=== PATIENT | female | born 1965 | race Caucasian/White ===

== ENCOUNTER 2016-07-09 11:05 | Emergency (ER) | payer BC, OTHER ==
[2016-07-09] MEDS ORDERED: KETOROLAC TROMETHAMINE 60 MG/2 ML VIAL IM ONE (11:27)
--- NOTE | 2016-07-09 11:34 | PDOC ---
History of Present Illness - General Chief Complaint: Pain Stated Complaint: RIGHT SHOULDER PAIN Time Seen by Provider: 07/09/16 11:27 - History of Present Illness Initial Comments: 07/09/16 11:28 50 yo F with h/o HTN HLD, shoulder pain here with c/o worsening right shoulder pain. was golfing and may have strained it. no new numbness or tinlging. feels weak because of pain. though she felt a pop yesterday. was taking percocet, no relief. also to aleve today. no prior shoulder surgeries. no f/c no sob. Past History - Past Medical History Allergies/Adverse Reactions: Allergies Allergy/AdvReac Type Severity Reaction Status Date / Time No Known Allergies Allergy Verified 07/09/16 11:22 Home Medications: Ambulatory Orders Diazepam [Valium] 5 mg PO Q8H PRN #10 tablet MDD 3 07/09/16 Hydrochlorothiazide [Hctz -] 12.5 mg PO DAILY 07/09/16 Hydrocodone/Acetaminophen [Chelsea 5-325 Tablet] 1 each PO Q6H PRN 07/09/16 Ibuprofen 600 mg PO TID PRN #30 tablet MDD 3 07/09/16 Ramipril 10 mg PO DAILY 07/09/16 Rosuvastatin Calcium [Crestor] 20 mg PO DAILY 07/09/16 HTN: Yes Hypercholesterolemia: Yes - Psycho/Social/Smoking Cessation Hx Suicidal Ideation: No Smoking Status: Yes Smoking History: Current every day smoker Number of Cigarettes Smoked Daily: 3 Review of Systems - Review of Systems Constitutional: No: Chills, Diaphoresis HEENTM: No: Eye Pain, Blurred Vision Respiratory: No: Cough, Orthopnea Cardiac (ROS): No: Chest Pain, Edema ABD/GI: No: Abdominal Distended : No: Burning, Dysuria Musculoskeletal: Yes: Joint Pain, Muscle Pain. No: Joint Swelling, Muscle Weakness, Neck Pain, Joint Stiffness Integumentary: No: Bruising, Change in Color All Other Systems: Reviewed and Negative *Physical Exam - Physical Exam General Appearance: Yes: Nourished, Appropriately Dressed. No: Apparent Distress HEENT: positive: Normal ENT Inspection, Normal Voice Neck: positive: Trachea midline Respiratory/Chest: positive: Lungs Clear, Normal Breath Sounds. negative: Respiratory Distress Cardiovascular: positive: Regular Rhythm, Regular Rate, S1, S2. negative: Edema Musculoskeletal: positive: Other (right shoulder posterior scap ttp, FROM. no laxity. no tender over collarbone. elbow/ right wrist FROM NT. ). negative: CVA Tenderness (R) Neurologic: positive: Fully Oriented, Alert, Normal Mood/Affect, Other (n/v intact distal right arm. ) ED Treatment Course - RADIOLOGY Radiology Studies Ordered: Category Date Time Status SHOULDER-RIGHT [RAD] Stat Radiology 07/09/16 11:27 Ordered Medical Decision Making - Medical Decision Making 07/09/16 11:33 50 yo F with h/o HTN HLD here with c/o right shoulder . scapular pain. worse with movement, unrelieved by narcotics. differential: trapezial spasm, muscle strain, shoulder injury. plan xray shoulder, recommend outpt ortho followup. given rx for motrin 600 and valium 5mg. 07/09/16 12:03 xray shoulder negative. given RX for valium #10, 5 mg. and motrin 600 #30. [facility] . told to follow up with ortho and pcp. *DC/Admit/Observation/Transfer Diagnosis at time of Disposition: Shoulder injury, Muscle spasm - Discharge Dispostion Disposition: HOME Condition at time of disposition: Good Admit: No - Prescriptions Prescriptions: Ibuprofen 600 mg PO TID PRN #30 tablet MDD 3 PRN Reason: Pain Diazepam [Valium] 5 mg PO Q8H PRN #10 tablet MDD 3 PRN Reason: Pain - Referrals Referrals: Magdaleno Kaiser MD [Primary Care Provider] - Jorge Luis Choe MD [Staff Physician] - - Patient Instructions Printed Discharge Instructions: Tips to Help You Stop Smoking, DI for Shoulder Pain Additional Instructions: take valium 5 mg every 8 hours as needed for muscle spasm. if you are taking Narco, be sure to take at least half hour apart as both medications can make you drowsy. do not mix valium with alcohol, and do not drive after taking medication. you should also take ibuprofen 600 mg every 8 hours as needed for pain, take with food. follow up with orthopedics, DR Choe, or Gareth, see referral number. call to schedule a follow up appointment. continue with physical therapy.
[2016-07-09 11:39] VITALS: BP 124/73; PULSE 65; TEMP 97.8; BMI 22.8
[2016-07-09] MEDS ORDERED: KETOROLAC TROMETHAMINE 60 MG/2 ML VIAL ONE (11:41)
== END 2016-07-09 12:05 | disposition home or self-care (01) ==
LOC: FER 11:05
PROC: 3E0233Z Introduction of Anti-inflammatory into Muscle, Percutaneous Approach (ICD-10-PCS; principal; 2016-07-09)
DX: S49.91XA Unspecified injury of right shoulder and upper arm, initial encounter (principal); M62.838 Other muscle spasm; F17.210 Nicotine dependence, cigarettes, uncomplicated; I10 Essential (primary) hypertension; E78.5 Hyperlipidemia, unspecified; X58.XXXA Exposure to other specified factors, initial encounter; Y93.9 Activity, unspecified; Y92.9 Unspecified place or not applicable
CPT/HCPCS: 73030-TC-RT; 99282-25

== ENCOUNTER 2016-11-02 06:19 | Day surgery (SDC) | payer OTHER, BC ==
[2016-10-25 17:45] VITALS: BMI 23.0
[2016-11-02] MEDS ORDERED: DEXAMETHASONE SOD PHOSPHATE/PF 10 MG/ML SDV ONE (07:31)
[2016-11-02] MEDS ORDERED: MIDAZOLAM HCL 2 MG/2 ML SINGLE DOSE VIAL ONE (07:31)
[2016-11-02] MEDS ORDERED: SUCCINYLCHOLINE CHLORIDE 200 MG/10 ML VIAL ONE (07:51)
[2016-11-02] MEDS ORDERED: PROPOFOL 20 ML ONE ×2 (07:51)
[2016-11-02] MEDS ORDERED: ROCURONIUM BROMIDE 50 MG/5 ML VIAL ONE (08:14)
[2016-11-02] MEDS ORDERED: KETOROLAC TROMETHAMINE 30 MG/1 ML VIAL ONE (08:21)
[2016-11-02] MEDS ORDERED: DEXAMETHASONE SOD PHOSPHATE 4 MG/1 ML VIAL ONE (08:21)
[2016-11-02] MEDS ORDERED: ONDANSETRON 4 MG/2 ML VIAL ONE ×2 (08:21→09:58)
[2016-11-02] MEDS ORDERED: ceFAZolin SODIUM 1 GM VIAL ONE (08:21)
[2016-11-02] MEDS ORDERED: DESFLURANE GAS 240 ML BOTTLE IH ONE (08:38)
[2016-11-02] MEDS ORDERED: PHENYLEPHRINE HCL 10 MG/1 ML SINGLE DOSE VIAL ONE (08:49)
[2016-11-02] MEDS ORDERED: ePHEDrine SULFATE 50 MG/1 ML AMPULE ONE (08:49)
[2016-11-02] MEDS ORDERED: BUPIVACAINE HCL/PF 0.5% (5MG/ML) 10 ML VIAL IJ ONE (09:15)
[2016-11-02] MEDS ORDERED: BUPIVACAINE HCL/PF 0.5% (5MG/ML) 10 ML VIAL ONE (09:15)
[2016-11-02] MEDS ORDERED: NEOSTIGMINE METHYLSULFATE 0.5 MG/ML - 10 ML MDV ONE (09:19)
[2016-11-02] MEDS ORDERED: GLYCOPYRROLATE 0.2 MG/1 ML VIAL ONE (09:19)
[2016-11-02] MEDS ORDERED: ONDANSETRON 4 MG/2 ML VIAL IVPUSH PRN (09:34)
[2016-11-02] MEDS ORDERED: oxyCODONE HCL 5 MG TABLET PO PRN (09:34)
[2016-11-02] MEDS ORDERED: LACTATED RINGERS SOLUTION 1,000 ML IV SCH (09:45)
--- NOTE | 2016-11-02 10:24 | OP ---
DATE OF OPERATION: 11/02/2016 PREOPERATIVE DIAGNOSIS: Left inguinal hernia. POSTOPERATIVE DIAGNOSIS: Direct left inguinal hernia. PROCEDURE PERFORMED: Open repair of direct left inguinal hernia, intermediate wound closure (8 cm). SURGEON: Paul Yañez M.D. HITCHER: Wili Grijalva M.D. ANESTHESIA: Sara Chopra M.D. (general) INDICATIONS: The patient is a 51-year-old woman who presents for repair of a large left inguinal hernia. The indications, alternatives and possible complications were reviewed. Consent was obtained. DESCRIPTION OF PROCEDURE: With the patient in the supine position and after general anesthesia, the left groin was prepped and draped in sterile fashion using chlorhexidine. An 8-cm left groin incision was made between the left pubic tubercle and left anterior iliac spine. The incision was deepened into the subcutaneous space. The subcutaneous tissues were divided, and ultimately the external oblique aponeurosis identified. All identified vessels in the subcutaneous space were clamped, divided and ligated. The external oblique aponeurosis was then opened in the direction of its fibers through the external ring. The ilioinguinal nerve was identified and spared. The undersurface of the split external oblique aponeurosis was swept clean to the level of the pubic tubercle. At the pubic tubercle, a Mazon drain was placed around the obvious remnant of the round ligament and fibrofatty tissue. Then the round ligament was divided at the pubic tubercle and retracted superiorly. It was explored. No indirect component was identified. It was ultimately amputated and allowed to retract into the preperitoneal space. Inspection of the floor revealed a large direct component. its entire length. The preperitoneal tissues were reduced. The floor was repaired, imbricating the transversalis fascia in 2 layers using 2 -0 Prolene suture, beginning at the pubic tubercle, progressing superiorly and obliterating the internal ring, and returning to the pubic tubercle. The tissue integrity was adequate and no mesh was placed. Ultimately, the external oblique aponeurosis was closed in a continuous fashion using 3-0 Vicryl suture material. The wound was closed in layers. Umesh fascia was approximated with 3-0 chromic suture. The subcutaneous tissues were approximated using interrupted 3-0 chromic suture. The subcuticular layer was approximated using continuous subcuticular 4 -0 Biosyn sutures. Prior to complete closure, 10 mL of 0.5% Marcaine was freely instilled in the wound. Dermabond was applied. The procedure was terminated. The instrument count was correct. Estimated blood loss was minimal. SPECIMEN: None. IMPLANT: None. DRAINS: None. The patient tolerated the procedure and the procedure was terminated. Juice [id number] MTDD
[2016-11-02] MEDS: HYDROmorphone HCL CARPU-JECT 1 MG/1 ML DISP.SYRIN IVPUSH ONE ×2 (10:40→10:50)
[2016-11-02] MEDS ORDERED: HYDROmorphone HCL CARPU-JECT 1 MG/1 ML DISP.SYRIN ONE (10:42)
[2016-11-02] MEDS ORDERED: HYDROmorphone HCL CARPU-JECT 1 MG/1 ML DISP.SYRIN IVPUSH ONE (11:09)
[2016-11-02 11:40] VITALS: PULSE 60; TEMP 97.8
[2016-11-02] MEDS ORDERED: oxyCODONE HCL 5 MG TABLET ONE (11:44)
[2016-11-02 12:24] VITALS: BP 126/66
== END 2016-11-02 12:15 | disposition home or self-care (01) ==
LOC: FASU 06:19
PROVIDERS: ATTEND Surgery
PROC: 0YQ60ZZ Repair Left Inguinal Region, Open Approach (ICD-10-PCS; principal; 2016-11-02 08:06)
DX: K40.90 Unilateral inguinal hernia, without obstruction or gangrene, not specified as recurrent (principal)
CPT/HCPCS: 94760

== ENCOUNTER 2022-05-16 16:08 | Emergency (ER) | payer OTHER, BC ==
[2022-05-16 16:30] VITALS: BP 158/80; PULSE 83; RESP 16; TEMP 98.7; BMI 24.2
== END 2022-05-16 18:45 | disposition home or self-care (01) ==
LOC: JER 16:08
DX: K64.8 Other hemorrhoids (principal)
CPT/HCPCS: 99282-25

== ENCOUNTER 2023-05-29 04:21 | Day surgery (SDC) | payer BC, OTHER ==
[2023-05-24 08:46] VITALS: BMI 25.0
[2023-05-29 08:38] VITALS: TEMP 97.8
[2023-05-29 11:03] VITALS: RESP 18
[2023-05-29 11:06] VITALS: BP 109/64; PULSE 70
== END 2023-05-29 09:20 | disposition home or self-care (01) ==
LOC: JASU-ENDO 04:21
PROVIDERS: ATTEND Internal Medicine Gastroenterology
PROC: 0DB98ZX Excision of Duodenum, Via Natural or Artificial Opening Endoscopic, Diagnostic (ICD-10-PCS; 2023-05-29)
PROC: 0DB68ZX Excision of Stomach, Via Natural or Artificial Opening Endoscopic, Diagnostic (ICD-10-PCS; 2023-05-29)
PROC: 0DB28ZX Excision of Middle Esophagus, Via Natural or Artificial Opening Endoscopic, Diagnostic (ICD-10-PCS; 2023-05-29)
PROC: 0DB38ZX Excision of Lower Esophagus, Via Natural or Artificial Opening Endoscopic, Diagnostic (ICD-10-PCS; 2023-05-29)
PROC: 0DBL8ZX Excision of Transverse Colon, Via Natural or Artificial Opening Endoscopic, Diagnostic (ICD-10-PCS; principal; 2023-05-29 08:00)
DX: Z12.11 Encounter for screening for malignant neoplasm of colon (principal); D12.3 Benign neoplasm of transverse colon; K63.5 Polyp of colon; K64.4 Residual hemorrhoidal skin tags; K64.8 Other hemorrhoids; K57.30 Diverticulosis of large intestine without perforation or abscess without bleeding; Z86.010 Personal history of colon polyps; K29.50 Unspecified chronic gastritis without bleeding; K44.9 Diaphragmatic hernia without obstruction or gangrene; K21.00 Gastro-esophageal reflux disease with esophagitis, without bleeding
CPT/HCPCS: 88305-TC; 88342-TC

== ENCOUNTER 2024-08-14 12:32 | Inpatient (IN) | payer OTHER ==
[2024-08-14] MEDS ORDERED: ONDANSETRON 4 MG/2 ML VIAL ONE (13:47)
[2024-08-14] MEDS: LACTATED RINGERS SOLUTION 1000 ML INFUS.BAG IV ONE ×2 (13:56→15:30)
[2024-08-14] MEDS: ONDANSETRON 4 MG/2 ML VIAL IVPB ONE (13:56)
[2024-08-14 13:57] LABS: ABSOLUTE IMMATURE GRANULOCYTES 0.03 x10^3/uL (0.0-0.031); BASOPHILS # 0.05 x10^3/uL (0.01-0.08); EOSINOPHIL % 1.1 % (0.7-5.8); EOSINOPHILS # 0.09 x10^3/uL (0.04-0.36); MCHC 33.7 g/dl (32.2-35.5); MEAN CELL VOLUME 91.4 fl (79.4-94.8); MEAN PLT VOLUME 8.7 fl (9.4-12.3); MONOCYTE # 0.61 x10^3/uL (0.24-0.86); MONOCYTE % 7.5 % (4.7-12.5); RDW 13.0 % (12.4-16.4)
[2024-08-14 14:00] LABS: BG HCT 49.0 % (32.4-45.2); VENOUS BASE EXCESS 2.5 mmol/L (-2-2); VENOUS O2 SATURATION 53.3 % (70-80); VENOUS PCO2 34.2 mmHg (38-52); VENOUS PH 7.487 (7.310-7.410)
[2024-08-14] MEDS ORDERED: ACETAMINOPHEN INJECTION 100 ML ONE (14:03)
[2024-08-14 14:04] LABS: INR 1.04 (0.83-1.09); PROTHROMBIN TIME (PATIENT) 11.4 SEC (9.7-13.0)
[2024-08-14] MEDS: ACETAMINOPHEN 1000 MG/100 ML BAG IVPB ONE (14:06)
[2024-08-14 14:07] LABS: ACTIVATED PTT 28.4 SECONDS (25.2-36.5)
[2024-08-14 15:34] LABS: CO2 22.0 mmol/L (21-32); GLUCOSE,RANDOM 99.0 mg/dL (74-106)
[2024-08-14 15:37] LABS: CREATININE 2.0 mg/dL (0.55-1.3); SGOT/AST 28.0 U/L (15-37); SGPT/ALT 45.0 U/L (13-61)
[2024-08-14 15:38] LABS: TOT PROT 7.7 g/dl (6.4-8.2)
[2024-08-14 15:40] LABS: ALK PHOS 127.0 U/L (45-117)
[2024-08-14 16:22] LABS: HIV INTERPRETATION NEGATIVE (NEGATIVE)
[2024-08-14 16:24] LABS: HCV DIAGNOSTIC IN-HOUSE W/RFLX NON-REACTIVE (NONREACTIVE)
[2024-08-14] MEDS: METOCLOPRAMIDE HCL INJECTION 10 MG/2 ML VIAL IVPB ONE (16:46)
[2024-08-14 18:36] LABS: URINE APPEARANCE CLEAR; URINE BILIRUBIN NEGATIVE (NEGATIVE); URINE COLOR YELLOW; URINE GLUCOSE (UA) NEGATIVE (NEGATIVE); URINE KETONE NEGATIVE (NEGATIVE); URINE LEUK ESTERASE NEGATIVE (NEGATIVE); URINE NITRITE NEGATIVE (NEGATIVE); URINE PROTEIN TRACE (NEGATIVE); URINE UROBILINOGEN 0.2 mg/dL (0.2-1.0)
[2024-08-14 23:46] VITALS: BMI 25.0
[2024-08-15] MEDS: ACETAMINOPHEN 1000 MG/100 ML BAG IVPB PRN (00:31)
[2024-08-15] MEDS: hydrALAZINE HCL 50 MG TABLET (FP) PO SCH (00:56)
[2024-08-15] MEDS: HEPARIN NA (PORCINE) 5,000 UNITS/ML 1ML VIAL SQ SCH (06:09)
[2024-08-15 07:20] VITALS: BP 117/78; PULSE 72; RESP 18; TEMP 97.5
[2024-08-15 08:41] LABS: MCHC 33.1 g/dl (32.2-35.5); MEAN CELL VOLUME 92.9 fl (79.4-94.8); MEAN PLT VOLUME 8.7 fl (9.4-12.3); RDW 12.8 % (12.4-16.4)
[2024-08-15 09:26] LABS: CO2 25.0 mmol/L (21-32); GLUCOSE,RANDOM 100.0 mg/dL (74-106)
[2024-08-15 09:29] LABS: CREATININE 1.0 mg/dL (0.55-1.3); SGPT/ALT 39.0 U/L (13-61)
[2024-08-15 09:30] LABS: SGOT/AST 25.0 U/L (15-37)
[2024-08-15 09:31] LABS: TOT PROT 6.8 g/dl (6.4-8.2)
[2024-08-15 09:32] LABS: ALK PHOS 113.0 U/L (45-117)
[2024-08-15] MEDS: FAMOTIDINE 20 MG TABLET PO SCH (09:35)
[2024-08-15] MEDS: EZETIMIBE 10 MG TABLET (FP) PO SCH (09:36)
[2024-08-15] MEDS ORDERED: ROSUVASTATIN CA 20 MG TABLET PO SCH (22:00)
== END 2024-08-15 11:55 | disposition home or self-care (01) | DRG 684 ==
LOC: JER 12:32 → JERBED 16:53 → OBSVTOIN 22:54 → J7W 23:34
PROVIDERS: ADMIT Internal Medicine
DX: N17.9 Acute kidney failure, unspecified (principal); K21.9 Gastro-esophageal reflux disease without esophagitis; I10 Essential (primary) hypertension; E78.5 Hyperlipidemia, unspecified; I95.1 Orthostatic hypotension; R42 Dizziness and giddiness; E87.6 Hypokalemia; R19.7 Diarrhea, unspecified
CPT/HCPCS: 36415; 71045-TC-FY; 74176-TC; 76775-TC; 80053; 81003; 82570; 82803; 83605; 83735; 83935; 84100; 84300; 84484; 85025; 85610; 85730; 86803; 86850; 86900; 86901; 87040; 87045; 87046; 87086; 87205; 87324; 87389; 87449; 87637-QW; 93005; 93010; 99285-25; G0378